=== PATIENT | female | born 1965 | race Caucasian/White ===

== ENCOUNTER 2019-03-22 09:57 | Emergency (ER) | payer OTHER ==
[~2019-03-22] VITALS: Ht 170.2 cm; Wt 95.5 kg
[2019-03-22] MEDS ORDERED: ACET-2247 PO (10:08)
[2019-03-22] MEDS ORDERED: IBUPROFEN 600 MG TABLET PO ONE (11:00)
[2019-03-22] MEDS ORDERED: BACL10TA PO (11:13)
[2019-03-22] MEDS ORDERED: ACET650T9 PO (11:13)
[2019-03-22 12:00] VITALS: BP 142/73
== END 2019-03-22 12:13 | disposition home or self-care (01) ==
LOC: EMS 09:59
DX: S83.91XA Sprain of unspecified site of right knee, initial encounter (principal); S83.92XA Sprain of unspecified site of left knee, initial encounter; X58.XXXA Exposure to other specified factors, initial encounter; Y93.39 Activity, other involving climbing, rappelling and jumping off; Y92.89 Other specified places as the place of occurrence of the external cause; Y99.8 Other external cause status